=== PATIENT | female | born 1965 | race Caucasian/White ===

== ENCOUNTER 2022-01-14 16:48 | Emergency (ER) | payer OTHER ==
[~2022-01-14] VITALS: Ht 167.6 cm; Wt 70.3 kg
[2022-01-14 17:28] VITALS: BP_SYST 111
[2022-01-14] MEDS ORDERED: IBUP-1969 PO (17:39)
[2022-01-14] MEDS ORDERED: PSEU30TA36 PO (17:39)
[2022-01-14] MEDS ORDERED: NEOM10SO7 EACH EAR (17:39)
[2022-01-14 18:08] VITALS: BP_SYST 122
== END 2022-01-14 18:08 | disposition home or self-care (01) ==
LOC: SED 16:48
DX: H60.91 Unspecified otitis externa, right ear (principal)
CPT/HCPCS: 99283

== ENCOUNTER 2022-01-17 11:58 | Emergency (ER) | payer OTHER ==
[~2022-01-17] VITALS: Ht 167.6 cm; Wt 70.3 kg
[~2022-01-17 11:58] MED LIST: IBUP-1969 PO; NEOM10SO7 EACH EAR; PSEU30TA36 PO
[2022-01-17 12:20] VITALS: BP_SYST 117
--- NOTE | 2022-01-17 12:20 | NUR ---
Placed in room 5 . Placed on satellite project site monitor, blood pressure machine and pulse oximeter. To gown for exam. Side rails up. Report given to CHRISTIAN MEJIA.
--- NOTE | 2022-01-17 12:25 | NUR ---
Pt brought by self,A&Ox4, pt presents to ER with R earache and dizziness, pt states she applied eardrops as prescribed but pain continues, pt afebrile, skin pink and warm, cap refill <3.
--- NOTE | 2022-01-17 12:40 | NUR ---
Dr Farah evaluating patient at bedside
[2022-01-17 13:27] LABS: BASOPHILS % (AUTO) 0.6 % (0.0-2.0); EOSINOPHILS # (AUTO) 0.2 K/uL (0.0-0.4); EOSINOPHILS % (AUTO) 2.1 % (0.0-4.0); HEMATOCRIT 34.9 % (36-48); HEMOGLOBIN 11.7 g/dL (12.0-16.0); LYMPHOCYTES # (AUTO) 2.1 K/uL (1.0-5.5); LYMPHOCYTES % (AUTO) 26.9 % (20.5-51.5); MEAN CORPUSCULAR HEMOGLOBIN 30 pg (27-31); MEAN CORPUSCULAR HGB CONC 34 % (32-36); MEAN CORPUSCULAR VOLUME 88 fL (79.0-98.0); MONOCYTES # (AUTO) 0.7 K/uL (0.0-1.0); MONOCYTES % (AUTO) 8.8 % (1.7-9.3); NEUTROPHILS # (AUTO) 4.7 K/uL (1.8-7.7); NEUTROPHILS % (AUTO) 61.6 % (40.0-70.0); PLATELET COUNT (AUTO) 269 K/uL (130-430); RED BLOOD CELL COUNT(AUTO) 3.95 MIL/uL (4.2-6.2); RED CELL DISTRIBUTION WIDTH 13.7 % (9.0-15.0); WHITE BLOOD COUNT (AUTO) 7.7 K/uL (4.8-10.8)
[2022-01-17 13:46] LABS: ANION GAP 5 (5-15); CALCIUM 8.7 mg/dL (8.4-11.0); CHLORIDE 104 mmol/L (98-107); CREATININE 0.81 mg/dL (0.55-1.30); GLUCOSE 91 mg/dL (70-99); SODIUM SERUM 137 mmol/L (136-145); UREA NITROGEN, BLOOD 22 mg/dL (8-21)
[2022-01-17 13:47] LABS: GFR AFRICAN AMERICAN 94 mL/min (>90)
[2022-01-17 13:48] LABS: C-REACTIVE PROTEIN QUANT < 0.2 mg/dL (0-0.5)
[2022-01-17 13:52] LABS: ALANINE AMINOTRANSFERASE 16 U/L (12-78); ALBUMIN 3.3 g/dL (3.4-4.8); ASPARTATE AMINOTRANSFERASE 16 U/L (10-37); TOTAL BILIRUBIN 0.2 mg/dL (0.0-1.0)
[2022-01-17] MEDS ORDERED: HYDR-3917 PO (14:24)
[2022-01-17] MEDS ORDERED: IBUP-1969 PO (14:24)
[2022-01-17 14:39] VITALS: BP_SYST 117
--- NOTE | 2022-01-17 14:41 | NUR ---
Patient given written and verbal discharge instructions and verbalizes understanding. ER MD discussed with patient the results and treatment provided. Patient in stable condition. ID arm band removed. Rx of Hydrocodone and Ibuprofen given. Patient educated on pain management and to follow up with PMD. Pain Scale 2/10. Opportunity for questions provided and answered. Medication side effect fact sheet provided.
== END 2022-01-17 14:41 | disposition home or self-care (01) ==
LOC: SED 11:58
DX: H92.01 Otalgia, right ear (principal); Z79.899 Other long term (current) drug therapy
CPT/HCPCS: 36415; 70450-TC; 76376; 80053; 85025; 86140; 99284